=== PATIENT | female | born 1965 | race Caucasian/White ===

== ENCOUNTER → 2017-06-16 | Day surgery (SDC) | payer BC, OTHER ==
[2017-06-09 14:33] VITALS: Ht 175.3 cm; Wt 102.3 kg
[~2017-06-16] VITALS: Ht 175.3 cm; Wt 102.3 kg
[~2017-06-16] MED LIST: DIVA500T59 PO; KPP/1000 PO; LEVO50TA6 PO; LIDOCAINE HCL 2% 2 ML VIAL (20MG/ML) ONE; MIDAZOLAM HCL 1 MG/ML 2ML VIAL ONE; MULTTAB58 PO; ONDANSETRON INJ 2 MG/ML 2 ML VIAL ONE; PROPOFOL IV EMULSION 10 MG/ML 20 ML VIAL IV ONE; PSYL48.59 PO; SODIUM CHLORIDE 0.9% 500ML 500 ML IV ONE
--- NOTE | 2017-06-16 10:00 | Endo History and Physical ---
History & Physical Date of Service: Jun 16, 2017. Chief Complaint: Screening Referring Physician: Sherin Muhammad History of Present Illness screening Past Surgical History Hx Cardiac Surgery: No Hx Internal Defibrillator: No Hx Pacemaker: No Hx Abdominal Surgery: Yes () Hx of Implantable Prosthesis: No Hx Post-Op Nausea and Vomiting: No Hx Cancer Surgery: No Hx Thoracic Surgery: No Hx Orthopedic: Yes (HAND CYST REMOVAL) Hx Urinary Tract Surgery: No Family History None Social History Smoking Status: Former Smoker Hx Substance Use: No Hx Alcohol Use: No Allergies Coded Allergies: Phenytoin (Verified Allergy, Unknown, ELEVATED COUNTS, 06/09/17) Topiramate (Verified Allergy, Unknown, SYNCOPAL EPISODES, 06/09/17) Current Medications Reported Home Medications Medications Dose Route/Sig Max Daily Dose Days Date Category Keppra (Levetiracetam) 1,000 Mg Tab 1,000 Mg PO BID 06/09/17 Reported Depakote (Divalproex Sodium) 500 Mg Tab 1 Tab PO QAM 06/09/17 Reported Depakote (Divalproex Sodium) 500 Mg Tab 2 Tab PO QPM 06/09/17 Reported Metamucil (Psyllium) 48.57 % Pow 1 Dose PO QPM 06/09/17 Reported Multivitamin (Multiple Vitamin) 1 Tab Tab 1 Tab PO QPM 06/09/17 Reported Levothyroxine Sodium 50 Mcg Tab 1 Tab PO QAM 90 06/09/17 Reported Vital Signs Weight (Kilograms): 102.27 Height (Feet): 5 Height (Inches): 9 Date Time Temp Pulse Resp B/P (MAP) Pulse Ox O2 Delivery O2 Flow Rate FiO2 06/16/17 09:46 36.5 50 16 129/64 (85) 95 Room Air Physical Exam General Appearance: WD/WN, no apparent distress Assessment and Plan colonoscopy today
--- NOTE | 2017-06-16 10:49 | Discharge Instructions ---
Endoscopy Patient Instructions Date / Procedure(s) Performed Jun 16, 2017. Colonoscopy Allergy Information Coded Allergies: Phenytoin (Verified Allergy, Unknown, ELEVATED COUNTS, 06/09/17) Topiramate (Verified Allergy, Unknown, SYNCOPAL EPISODES, 06/09/17) Discharge Date / Findings Jun 16, 2017. 2 small polyps Medication Instructions Restart Stopped Medication(s): OK to resume all home medications as above Provider Instructions Activity Restrictions - No exercising or heavy lifting for 24 hours. - Do not drink alcohol the day of the procedure. - Do not drive a car or operate machinery until the day after the procedure. - Do not make any important decisions or sign important papers in 24 hours after the procedure. Following Day: - Return to full activity which may include returning to work/school. Diet Start your diet with liquids and light foods (jello, soup, juice, toast). Then eat your usual diet if not nauseated. Treatment For Common After Affects For mild abdominal pain, bloating, or excessive gas: - Rest - Eat lightly - Lie on right side Follow-Up Information Follow-up with Sherin Muhammad as scheduled Anesthesia Information What You Should Know You have had a procedure that required some medicine to reduce anxiety and discomfort. This treatment is called moderate sedation. After receiving the treatment, you may be sleepy, but you will be able to breathe on your own. The effects of the treatment may last for several hours. Follow these instructions along with Activity/Diet recommendations noted above: * Do NOT do anything where dizziness or clumsiness would be dangerous. * Rest quietly at home today, then you can be up and about tomorrow. * Have a responsible person stay with you the rest of today. * You may have had an I.V. today. If so, you may take the dressing off later today. Recommendations Call your doctor if: * Trouble breathing * Continuous vomiting for more than 24 hours * Temperature above 101 degrees * Severe abdominal pain or bloating * Pain not relieved by pain medicine ordered * There is increased drainage or redness from any incision * A large amount of rectal bleeding greater than 2-3 tablespoons. (If you had a polyp/s removed or have hemorrhoids, a small amount of blood - from the rectum is to be expected.) * You have any unanswered questions or concerns. IN THE EVENT OF A SERIOUS EMERGENCY, GO TO THE NEAREST EMERGENCY ROOM Your discharge instructions were prepared by provider Siomara Suvock. Patient Instructions Signature Page Thuy Lawton Patient (or Guardian) Signature/Date: I have read and understand the instructions given to me by my caregivers. Caregiver/RN/Doctor Signature/Date: The above-named patient and/or guardian has received patient instructions on this date. + Original Patient Signature Page (only) stays with chart. Please make copy for patient.
--- NOTE | 2017-06-16 10:56 | GI REPORT ---
Procedure Date: 06/16/2017 10:18 AM Procedure: Colonoscopy Indications: Screening for colorectal malignant neoplasm Medicines: Propofol per Anesthesia Complications: No immediate complications. Estimated blood loss: Minimal. Estimated Blood Loss: Estimated blood loss was minimal. Procedure: Pre-Anesthesia Assessment: - Prior to the procedure, a History and Physical was performed, and patient medications, allergies and sensitivities were reviewed. The patient's tolerance of previous anesthesia was reviewed. - The risks and benefits of the procedure and the sedation options and risks were discussed with the patient. All questions were answered and informed consent was obtained. - Patient identification and proposed procedure were verified prior to the procedure by the physician and the nurse. The procedure was verified in the pre-procedure area in the procedure room. - Mental Status Examination: alert and oriented. Airway Examination: normal oropharyngeal airway and neck mobility. Respiratory Examination: clear to auscultation. CV Examination: normal. Abdominal Examination: bowel sounds present, abdomen soft and non-tender, no masses or organomegaly noted. - ASA Grade Assessment: III - A patient with severe systemic disease. After I obtained informed consent, the scope was passed under direct vision. Throughout the procedure, the patient's blood pressure, pulse, and oxygen saturations were monitored continuously. The scope was introduced through the anus and advanced to the terminal ileum. The colonoscopy was performed without difficulty. The patient tolerated the procedure well. The quality of the bowel preparation was good. Findings: The perianal and digital rectal examinations were normal. Pertinent negatives include normal sphincter tone and no palpable rectal lesions. The terminal ileum appeared normal. A 5 mm polyp was found at the hepatic flexure. The polyp was sessile. The polyp was removed with a cold snare. Resection and retrieval were complete. Verification of patient identification for the specimen was done by the physician and nurse using the patient's name and date. Estimated blood loss was minimal. A 3 mm polyp was found in the descending colon. The polyp was sessile. The polyp was removed with a cold snare. Resection and retrieval were complete. Verification of patient identification for the specimen was done by the physician and nurse using the patient's name and date. Estimated blood loss was minimal. The retroflexed view of the distal rectum and anal verge was normal and showed no anal or rectal abnormalities. Impression: - The examined portion of the ileum was normal. - One 5 mm polyp at the hepatic flexure, removed with a cold snare. Resected and retrieved. - One 3 mm polyp in the descending colon, removed with a cold snare. Resected and retrieved. - The distal rectum and anal verge are normal on retroflexion view. Recommendation: - Await pathology results. - Repeat colonoscopy in 5 years for surveillance. - Return to referring physician as previously scheduled. - Discharge patient to home. Siomara Pardo D.O. Siomara Pardo, 06/16/2017 10:48:07 AM This report has been signed electronically. Note Initiated On: 06/16/2017 10:18 AM I attest to the content of the Intraoperative Record and orders documented therein, exceptions below
--- NOTE | 2017-06-16 11:00 | Anesthesiology Progress Note ---
Anesthesia Post Op Note Date & Time Jun 16, 2017 at 11:00 Vital Signs Pain Intensity: 0 Vital Signs Past 12 Hours Date Time Temp Pulse Resp B/P (MAP) Pulse Ox O2 Delivery O2 Flow Rate FiO2 06/16/17 10:48 50 16 121/56 (77) 96 Room Air 06/16/17 09:46 36.5 50 16 129/64 (85) 95 Room Air Notes Mental Status: alert / awake / arousable, participated in evaluation Pt Amnestic to Procedure: Yes Nausea / Vomiting: adequately controlled Pain: adequately controlled Airway Patency, RR, SpO2: stable & adequate BP & HR: stable & adequate Hydration State: stable & adequate Anesthetic Complications: no major complications apparent
[2017-06-16 11:22] VITALS: BP 167/67; PULSE 44; O2SAT 96
== END | disposition home or self-care (01) ==
LOC: C.GI 09:14
PROVIDERS: ATTEND Internal Medicine
DX: Z12.11 Encounter for screening for malignant neoplasm of colon (principal); D12.4 Benign neoplasm of descending colon; D12.3 Benign neoplasm of transverse colon; Z87.891 Personal history of nicotine dependence; E03.9 Hypothyroidism, unspecified; D64.9 Anemia, unspecified; M19.90 Unspecified osteoarthritis, unspecified site; Z79.899 Other long term (current) drug therapy

== ENCOUNTER 2017-08-28 11:46 | Emergency (ER) | payer BC, OTHER ==
[~2017-08-28] VITALS: Ht 177.8 cm; Wt 105.1 kg
[~2017-08-28 11:46] MED LIST changes: -LIDOCAINE HCL 2% 2 ML VIAL (20MG/ML) ONE; -MIDAZOLAM HCL 1 MG/ML 2ML VIAL ONE; -ONDANSETRON INJ 2 MG/ML 2 ML VIAL ONE; -PROPOFOL IV EMULSION 10 MG/ML 20 ML VIAL IV ONE; -SODIUM CHLORIDE 0.9% 500ML 500 ML IV ONE
[2017-08-28 12:03] VITALS: TEMP 36.7; Ht 177.8 cm; Wt 105.1 kg
[2017-08-28] MEDS ORDERED: ONDANSETRON INJ 2 MG/ML 2 ML VIAL IV STA (12:11)
[2017-08-28 12:12] VITALS: O2SAT 98
--- NOTE | 2017-08-28 12:21 | EMERGENCY ROOM VISIT NOTE ---
History Report prepared by Ariadna: Ridge Reich Under the Supervision of: Dr. Charly Arellano D.O. First contact with patient: 12:04 Chief Complaint: STROKE SYMPTOMS Stated Complaint: SEIZURE, HEADACHE, VOMITING, POSSIBLE STROKE Nursing Triage Summary: pt had seizure at 0815 this am was found on floor by daughter lasted 1-2 minutes pt unable to move right side .pt did move from w/c to bed with my assist .family states pt unable to move right side since having surgery has always been weak. had avm in 2003. 2 hours after seizure pt started vomiting on herself. unable to assess pt due to family keeps responding and not letting pt Attempt to answer. pt knows name and . c/o headache. pt unable to move right foot in air and hold it same with right arm. History of Present Illness The patient is a 52 year old female who presents to the Emergency Room with complaints of a headache that began 1 hour ago. 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 She also began to have seizures and migraines after her stoke as well. The patient has not had a seizure in several months, however, she did have one earlier this morning, about 4 hours ago. They state that her seizure was completely similar to her regular seizures, lasting only a couple of minutes. She then began to have a sudden onset of a headache that gradually worsened throughout the morning. She became nauseated and experienced multiple episodes of vomiting. She denies any fevers at this time. Source of History: patient Onset: about 1 hour ago Position: head Symptom Intensity: moderate Quality: ache Timing: worsening Associated Symptoms: + nausea, + vomiting, No fevers Review of Systems See HPI for pertinent positives & negatives. A total of 10 systems reviewed and were otherwise negative. Past Medical & Surgical Medical Problems: (1) Brain damage (2) Right sided weakness (3) Stroke Surgical Problems: (1) AVM (arteriovenous malformation) brain Family History Patient reports no known family medical history. Social History Smoking Status: Never Smoker Alcohol Use: none Drug Use: none Marital Status: Occupation Status: disabled Current/Historical Medications Scheduled Divalproex Sodium (Depakote), 1,000 MG PO QPM Divalproex Sodium (Depakote), 500 MG PO QAM Docusate Sodium (Colace), 200 MG PO BID Levetiracetam (Keppra), 2,000 MG PO BID Levothyroxine Sodium (Levothyroxine Sodium), 50 MCG PO QAM Multiple Vitamin (Multivitamin), 1 TAB PO QPM Psyllium (Metamucil), 1 DOSE PO QPM Allergies Coded Allergies: Phenytoin (Verified Allergy, Unknown, ELEVATED COUNTS, 08/28/17) Topiramate (Verified Allergy, Unknown, SYNCOPAL EPISODES, 08/28/17) Physical Exam Vital Signs Date Time Temp Pulse Resp B/P (MAP) Pulse Ox O2 Delivery O2 Flow Rate FiO2 08/28/17 15:31 49 18 141/72 95 08/28/17 14:40 57 16 131/77 94 Room Air 08/28/17 13:32 53 18 149/81 95 Room Air 08/28/17 13:00 53 18 154/90 95 Room Air 08/28/17 12:30 58 18 147/75 93 Room Air 08/28/17 12:12 98 Room Air 08/28/17 12:12 98 Room Air 08/28/17 12:03 36.7 73 18 136/86 96 Room Air 08/28/17 12:01 66 Physical Exam GENERAL: Patient is awake, alert, and in no acute distress. Patient appears to be uncomfortable and anxious. EYES: The conjunctivae are clear. The pupils are round and reactive. EARS, NOSE, MOUTH AND THROAT: The nose is without any evidence of any deformity. Mucous membranes are moist tongue is midline NECK: The neck is nontender and supple. RESPIRATORY: Normal respiratory effort is noted there is no evidence of wheezing rhonchi or rales CARDIOVASCULAR: Regular rate and rhythm noted there no murmurs rubs or gallops normal S1 normal S2 GASTROINTESTINAL: The abdomen is soft. Bowel sounds are present in all quadrants. Abdomen is nontender MUSCULOSKELETAL/EXTREMITIES: There is no evidence of gross deformity full range of motion is noted in the hips and shoulders SKIN: There is no obvious evidence of any rash. There are no petechiae, pallor or cyanosis noted. NEUROLOGIC: Patient is awake and alert. She answers questions softly and intermittently, but appears to answer appropriately. No drift in her upper extremities. [employer] strength is diminished in the RUE compared to the left. Patellar tendon reflexes are 3+ on the right and 2+ on the left. No facial droop. Medical Decision & Procedures ER Provider Diagnostic Interpretation: Radiology results as stated below per my review and radiologist interpretation: CT HEAD WITHOUT CONTRAST (CT) CLINICAL HISTORY: Seizure, headache COMPARISON STUDY: Head CT dated 01/01/2008, MRI the brain dated 08/29/2012 TECHNIQUE: Axial CT of the brain is performed from the vertex to the skull base. IV contrast was not administered for this examination. A dose lowering technique was utilized adhering to the principles of ALARA. CT DOSE: 687.98 mGy.cm FINDINGS: There are postsurgical changes of prior aneurysm clipping. There are dystrophic calcifications present within the parafalcine frontal region. There is bifrontal encephalomalacia, left greater than right. There is stable dilatation of the left lateral ventricle. There is no acute hemorrhage. There are patchy white matter hypodensities likely on a small vessel basis. There is stable dilatation of the left lateral ventricle, a finding which is felt to be secondary to volume loss There is no evidence of acute sinusitis IMPRESSION: No acute intracranial findings Electronically signed by: Osmany Castaneda M.D. 08/28/2017 12:51 PM Dictated Date/Time: 08/28/2017 12:48 PM CHEST ONE VIEW PORTABLE CLINICAL HISTORY: 52 years-old Female presenting with EVALUATE ALTERED MENTAL STATUS/WEAKNESS. TECHNIQUE: Portable upright AP view of the chest was obtained. COMPARISON: 03/10/2011. FINDINGS: Atherosclerosis of the aortic arch. Cardiac silhouette normal in size. Lungs and pleural spaces clear. Osseous structures normal. Upper abdomen normal. IMPRESSION: 1. No acute cardiopulmonary disease. Electronically signed by: Orestes Velásquez M.D. 08/28/2017 12:46 PM Dictated Date/Time: 08/28/2017 12:46 PM Laboratory Results 08/28/17 12:28 Red Blood Count 5.12, Mean Corpuscular Volume 88.9, Mean Corpuscular Hemoglobin 30.5, Mean Corpuscular Hemoglobin Concent 34.3, Mean Platelet Volume 9.8, Neutrophils (%) (Auto) 73.0, Lymphocytes (%) (Auto) 20.5, Monocytes (%) (Auto) 4.6, Eosinophils (%) (Auto) 1.1, Basophils (%) (Auto) 0.4, Neutrophils # (Auto) 7.10, Lymphocytes # (Auto) 1.99, Monocytes # (Auto) 0.45, Eosinophils # (Auto) 0.11, Basophils # (Auto) 0.04 08/28/17 12:28 Test 08/28/17 12:28 08/28/17 12:29 08/28/17 13:25 White Blood Count 9.73 K/uL (4.8-10.8) Red Blood Count 5.12 M/uL (4.2-5.4) Hemoglobin 15.6 g/dL (12.0-16.0) Hematocrit 45.5 % (37-47) Mean Corpuscular Volume 88.9 fL (80-100) Mean Corpuscular Hemoglobin 30.5 pg (25-34) Mean Corpuscular Hemoglobin Concent 34.3 g/dl (32-36) Platelet Count 140 K/uL (130-400) Mean Platelet Volume 9.8 fL (7.4-10.4) Neutrophils (%) (Auto) 73.0 % Lymphocytes (%) (Auto) 20.5 % Monocytes (%) (Auto) 4.6 % Eosinophils (%) (Auto) 1.1 % Basophils (%) (Auto) 0.4 % Neutrophils # (Auto) 7.10 K/uL (1.4-6.5) Lymphocytes # (Auto) 1.99 K/uL (1.2-3.4) Monocytes # (Auto) 0.45 K/uL (0.11-0.59) Eosinophils # (Auto) 0.11 K/uL (0-0.5) Basophils # (Auto) 0.04 K/uL (0-0.2) RDW Standard Deviation 45.8 fL (36.4-46.3) RDW Coefficient of Variation 14.0 % (11.5-14.5) Immature Granulocyte % (Auto) 0.4 % Immature Granulocyte # (Auto) 0.04 K/uL (0.00-0.02) Prothrombin Time 10.3 SECONDS (9.0-12.0) Prothromb Time International Ratio 1.0 (0.9-1.1) Activated Partial Thromboplast Time 25.0 SECONDS (21.0-31.0) Partial Thromboplastin Ratio 1.0 Anion Gap 6.0 mmol/L (3-11) Est Creatinine Clear Calc Drug Dose 116.5 ml/min Estimated GFR () 107.0 Estimated GFR (Non- 92.3 BUN/Creatinine Ratio 21.2 (10-20) Calcium Level 9.2 mg/dl (8.5-10.1) Magnesium Level 2.0 mg/dl (1.8-2.4) Total Bilirubin 0.3 mg/dl (0.2-1) Direct Bilirubin < 0.1 mg/dl (0-0.2) Aspartate Amino Transf (AST/SGOT) 22 U/L (15-37) Alanine Aminotransferase (ALT/SGPT) 46 U/L (12-78) Alkaline Phosphatase 67 U/L (45-117) Troponin I 0.116 ng/ml (0-0.045) Total Protein 7.8 gm/dl (6.4-8.2) Albumin 4.2 gm/dl (3.4-5.0) Thyroid Stimulating Hormone (TSH) 1.740 uIu/ml (0.300-4.500) Prolactin 8.36 ng/mL Valproic Acid (Depakene) Level 99 mcg/ml (50-100) Bedside Glucose 114 mg/dl (70-90) Urine Color YELLOW Urine Appearance CLEAR (CLEAR) Urine pH 8.0 (4.5-7.5) Urine Specific Barnard 1.014 (1.000-1.030) Urine Protein NEG (NEG) Urine Glucose (UA) NEG (NEG) Urine Ketones NEG (NEG) Urine Occult Blood NEG (NEG) Urine Nitrite NEG (NEG) Urine Bilirubin NEG (NEG) Urine Urobilinogen NEG (NEG) Urine Leukocyte Esterase LARGE (NEG) Urine WBC (Auto) 10-30 /hpf (0-5) Urine RBC (Auto) 0-4 /hpf (0-4) Urine Hyaline Casts (Auto) 1-5 /lpf (0-5) Urine Epithelial Cells (Auto) >30 /lpf (0-5) Urine Bacteria (Auto) NEG (NEG) Laboratory results per my review. Medications Administered Medications (Trade) Dose Ordered Sig/Yonny Route Start Time Stop Time Status Last Admin Dose Admin Ondansetron HCl (Zofran Inj) 4 mg NOW STAT IV 08/28/17 12:11 08/28/17 12:12 DC 08/28/17 12:31 4 MG ECG Per My Interpretation Indication: weakness Rate (beats per minute): 55 Rhythm: sinus bradycardia Findings: nonspecific-ST abn (inferior and lateral), PVC Comparison ECG Date: 07/09/2007 Change: no significant change (decreased rate, otherwise no significant change) ED Course 1204: The patient was evaluated in room B1. A complete history and physical examination were performed. 1211: Ordered Zofran Inj 4 mg IV 1509: The patient does not want to stay for further evaluation as an inpatient and would like to go home. 1520: Upon reevaluation, the patient is resting. I discussed the results and treatment plan with her. She verbalized agreement of the treatment plan. She was discharged home. Medical Decision Differential diagnosis: Etiologies such as migraine headache, meningitis, sinusitis, CO exposure, ICH, SAH, infection, tumor, headache, sinus thrombosis, arterial dissection, as well as others were entertained. Nursing notes reviewed. Additional history is obtained from the patient's family members. The patient is a 52-year-old female who has had a history of AVM repair in her brain. She has a history of seizures but has not had a seizure in over a year. She had a seizure which occurred today which was followed by unilateral weakness. The patient has had similar symptoms in the past but this appears to be lasting longer according to family members. She also had an episode of emesis as well as headache. I discussed patient's laboratory and radiographic studies with her and her family members. She was reevaluated multiple times. On final reevaluation she was awake and alert and had no specific complaints. The patient was found to have nonspecific EKG changes as well as a mildly elevated troponin. I offered to have the patient evaluated by the hospitalist for possible inpatient management but the patient feels at her baseline. At this time she denies any dyspnea on exertion or chest pain. I am unsure of the cause of this finding but the patient has assured me that she will follow up with her primary care physician for further evaluation. She was also encouraged to continue all her medications as before and return to the emergency department immediately if symptoms change worsening of the need arises. Head Trauma GCS Score: 15 Medication Reconcilliation Current Medication List: was personally reviewed by me Blood Pressure Screening Patient's blood pressure: Elevated blood pressure Blood pressure disposition: Elevated BP felt to be situational Impression Primary Impression: Elevated troponin Additional Impressions: Seizure Headache Nausea & vomiting Scribe Attestation The scribe's documentation has been prepared under my direction and personally reviewed by me in its entirety. I confirm that the note above accurately reflects all work, treatment, procedures, and medical decision making performed by me. Departure Information Dispostion Home / Self-Care Referrals Sherin Muhammad M.D. (PCP) Forms HOME CARE DOCUMENTATION FORM, IMPORTANT VISIT INFORMATION Patient Instructions ED Seizure Recurrent, My [facility] Additional Instructions Continue all medications as prescribed. Rest and avoid any strenuous activity. All up with her family doctor this week. Return to the emergency department immediately if symptoms change worsening of the need arises. Continue taking Tylenol as directed for pain. I would recommend repeat laboratory studies to recheck the abnormal labs were found today in the emergency department. Problem Qualifiers Additional Impressions: Headache Headache type: unspecified Headache chronicity pattern: acute headache Intractability: not intractable Qualified Codes: R51 - Headache Nausea & vomiting Vomiting type: unspecified Vomiting Intractability: non-intractable Qualified Codes: R11.2 - Nausea with vomiting, unspecified
[2017-08-28 12:43] LABS: BASO % 0.4 %; BASO ABS # 0.04 K/uL (0-0.2); EOS % 1.1 %; EOS ABS # 0.11 K/uL (0-0.5); HEMATOCRIT 45.5 % (37-47); HEMOGLOBIN 15.6 g/dL (12.0-16.0); IG# 0.04 K/uL (0.00-0.02); LYMPH % 20.5 %; LYMPH ABS # 1.99 K/uL (1.2-3.4); MEAN CELL VOLUME 88.9 fL (80-100); MEAN CORPUSCULAR HEMOGLOBIN 30.5 pg (25-34); MEAN CORPUSCULAR HGB CONC 34.3 g/dl (32-36); MEAN PLATELET VOLUME 9.8 fL (7.4-10.4); MONO % 4.6 %; MONO ABS # 0.45 K/uL (0.11-0.59); PLATELET COUNT 140 K/uL (130-400); RED CELL DISTRIBUTION WIDTH SD 45.8 fL (36.4-46.3); WHITE BLOOD COUNT 9.73 K/uL (4.8-10.8)
[2017-08-28] MEDS ORDERED: DOCU-94 PO (12:43)
--- NOTE | 2017-08-28 12:48 | DIAGNOSTIC IMAGING REPORT ---
CHEST ONE VIEW PORTABLE CLINICAL HISTORY: 52 years-old Female presenting with EVALUATE ALTERED MENTAL STATUS/WEAKNESS. TECHNIQUE: Portable upright AP view of the chest was obtained. COMPARISON: 03/10/2011. FINDINGS: Atherosclerosis of the aortic arch. Cardiac silhouette normal in size. Lungs and pleural spaces clear. Osseous structures normal. Upper abdomen normal. IMPRESSION: 1. No acute cardiopulmonary disease. Electronically signed by: Orestes Velásquez M.D. 08/28/2017 12:46 PM Dictated Date/Time: 08/28/2017 12:46 PM
--- NOTE | 2017-08-28 12:52 | DIAGNOSTIC IMAGING REPORT ---
CT HEAD WITHOUT CONTRAST (CT) CLINICAL HISTORY: Seizure, headache COMPARISON STUDY: Head CT dated 01/01/2008, MRI the brain dated 08/29/2012 TECHNIQUE: Axial CT of the brain is performed from the vertex to the skull base. IV contrast was not administered for this examination. A dose lowering technique was utilized adhering to the principles of ALARA. CT DOSE: 687.98 mGy.cm FINDINGS: There are postsurgical changes of prior aneurysm clipping. There are dystrophic calcifications present within the parafalcine frontal region. There is bifrontal encephalomalacia, left greater than right. There is stable dilatation of the left lateral ventricle. There is no acute hemorrhage. There are patchy white matter hypodensities likely on a small vessel basis. There is stable dilatation of the left lateral ventricle, a finding which is felt to be secondary to volume loss There is no evidence of acute sinusitis IMPRESSION: No acute intracranial findings Electronically signed by: Osmany Castaneda M.D. 08/28/2017 12:51 PM Dictated Date/Time: 08/28/2017 12:48 PM
[2017-08-28 13:00] LABS: ALBUMIN 4.2 gm/dl (3.4-5.0); ALT/SGPT 46 U/L (12-78); BLOOD UREA NITROGEN 16 mg/dl (7-18); CALCIUM 9.2 mg/dl (8.5-10.1); CARBON DIOXIDE 30 mmol/L (21-32); CREATININE 0.75 mg/dl (0.60-1.20); GLUCOSE 106 mg/dl (70-99); POTASSIUM 3.7 mmol/L (3.5-5.1); SODIUM 140 mmol/L (136-145)
[2017-08-28 13:26] LABS: ALKALINE PHOSPHATASE 67 U/L (45-117); AST/SGOT 22 U/L (15-37); TOTAL PROTEIN 7.8 gm/dl (6.4-8.2)
[2017-08-28 15:31] VITALS: BP 141/72; PULSE 49; O2SAT 95
== END 2017-08-28 15:32 | disposition home or self-care (01) ==
LOC: C.EDB 11:48
DX: R56.9 Unspecified convulsions (principal); R51 Headache; R11.2 Nausea with vomiting, unspecified

== ENCOUNTER 2025-04-12 16:10 | Observation (INO) ==
--- NOTE | 2025-04-12 16:20 | Emergency Department Note ---
Impression & Plan Chest pain, Chronic hyponatremia, Aphasia ED Provider Note NAME: JAK BARKER AGE: 59 SEX: F : 1965 ARRIVES VIA: Ambulance INFORMANT: Patient, EMS ED PROVIDER(S): Jose Stoner DO CHIEF COMPLAINT: chest pain HPI: This is a 59-year-old female with the PMHx of CVA c/b residual deficits and aphasia, epilepsy, hypothyroidism and HTN presenting to [facility] for further evaluation of chest pain. Patient is accompanied by EMS who provide additional history. Patient currently resides in [facility] for stroke rehabilitation services with significant aphasia. Patient developed chest pain today. Describes it as central. Sharp and stabbing. She is short of breath. EMS reports that she was given Maalox as well as sublingual nitroglycerin prior to arrival. They reported normal EKG. They deny fever or chills. No cough or congestion. They deny abdominal pain, nausea and vomiting. No urinary complaints. No recent changes in bowel movements. She does have right lower extremity swelling that she reports is worse than usual. Some pain in this area. Patient denies recent changes in medications or OTC supplements. Patient offers no other complaints, today. ADDITIONAL HISTORY OBTAINED: Per HPI Chronic Medical/Social Conditions Affecting Care: Per HPI PAST MEDICAL HISTORY: See Below PAST SURGICAL HISTORY: See Below FAMILY HISTORY: See Below SOCIAL HISTORY: See Below HOME MEDICATIONS: See Below ALLERGIES: See Below VITALS: See Below PHYSICAL EXAMINATION: GENERAL: Sitting up in bed, alert, well appearing, well nourished, no distress, non-toxic EYE EXAM: normal conjunctiva. OROPHARYNX: no exudate, no erythema, lips, buccal mucosa, and tongue normal and mucous membranes are moist NECK: supple, no nuchal rigidity, no adenopathy, non-tender LUNGS: Clear to auscultation. Normal chest wall mechanics HEART: no murmurs, regular rate, regular rhythm ABDOMEN: abdomen soft, non-tender, no masses, no rebound or guarding. BACK: Back is symmetrical on inspection and there is no deformity, no midline tenderness, no CVA tenderness. SKIN: no rashes and no bruising UPPER EXTREMITIES: upper extremities are grossly normal. LOWER EXTREMITIES: Right lower extremity is swollen as compared to the left. NEURO EXAM: Normal sensorium, GCS 15, significant aphasia, no gross weakness of arms, no gross weakness of legs. MEDICAL DECISION MAKING: Differential diagnoses includes but not limited to ACS, stable vs unstable angina, dysrhythmia, viral URI, pneumonia, pericarditis, pneumothorax, costochondritis, MSK strain, PE, hypertensive emergency, psychological causes, esophageal reflux, gastritis In summary, this is a 59 year old female who presented with chest pain. Differential as above. Nursing notes and pertinent past medical records reviewed. Vital signs reviewed and the patient is bradycardic and mildly hypertensive but otherwise afebrile and HDS. History and presentation revealed complicated history of CVA with aphasia that makes history and exam difficult. Physical examination revealed warm and well-perfused extremities with 2+ distal pulses. Right lower extremity is concerning for possible findings of DVT. As a result of my initial evaluation, history and review of systems with the patient is difficult secondary to her aphasia and prior CVA. Patient able to communicate central chest pain with mild shortness of breath. Does have findings consistent with possible DVT of the right lower extremity. Given chest pain shortness of breath, will proceed with CT PE study while loading with aspirin. Will provide pain control with sublingual nitroglycerin as well as IV fentanyl. Patient did receive Maalox prior to arrival. She does have multiple risk factors for ACS. Diagnostics interpreted by me include EKG and cardiac monitoring as listed below: -Cardiac Monitoring: An order was placed for continuous cardiac monitoring. The monitor shows a rate of 50s with regular rhythm. -ECG: Sinus bradycardia at a rate of [address] segment changes to suggest STEMI. There are anterolateral ST segment depression/T wave inversions. These appear chronic as compared to prior EKGs. Patient is normally bradycardic. Patient completed laboratory studies and imaging. Chest x-ray independently interpreted by me reveals some interstitial edema but no large pleural effusions. No pneumothorax. No focal consolidation. Results independently interpreted by me are acute on chronic hyponatremia present. Minimal hyperglycemia. Electrolytes and kidney function are otherwise normal. Normal LFTs and lipase. Troponin unremarkable. No significant leukocytosis or anemia. The patient was managed with IV fentanyl for pain control. She was given a loading dose of aspirin. Sublingual nitroglycerin was continued in the emergency department for further pain control. Subsequent reevaluations with the patient, she is reporting improvement in her chest pain from sublingual nitroglycerin. Relatively reassuring labs as well as EKG at this time. Patient's chest pain improved with sublingual nitro concern and she does have risk factors for coronary artery disease. Given difficult to have history with the patient as well as physical examination, I do believe hospital admission would be beneficial. Do feel that she could be closely monitored on telemetry with serial EKGs and troponins. Patient's symptoms could be related to the gastrointestinal symptom including esophagitis, GERD, gastritis or esophageal spasm as well. Still feel it is necessary for further workup as an inpatient. CT PE study was independently interpreted by me as negative for large saddle pulmonary embolism. Ultimately, the decision was made to admit the patient for high risk chest pain. I discussed the case with the hospitalist service via telephone/Tiger[employer] and they are agreeable to admit the patient to their services by Dr. Acevedo. Based on the above, including the patient's age, coexisting illnesses, labs, imaging, and exam findings the decision to treat as an inpatient. I discussed the patient with the hospitalist team who recommended admission to their services. They received the medications, treatments, interventions indicated above and their condition remained guarded. I discussed my findings with the patient and their family and they understand and agree with the treatment plan. All patient / family questions were answered to their satisfaction. Consults/Care Managements Discussions: Per MDM ER treatment provided: See above Procedures: none Critical Care: None The chart was completed utilizing [employer] voice recognition software. Grammatical errors, random word insertions, pronoun errors, and incomplete sentences are an occasional consequence of this system due to software limitations, ambient noise, and hardware issues. Any formal questions or concerns about the content, text, or information contained within the body of this dictation should be directly addressed to the physician for clarification. 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 Diverticulitis dx 6 mon ago History of cardiac murmur unsure Thyroid disease History of iron deficiency unsure History of recent hospitalization 3 weeks ago /[facility] - stomach infection - reason for upcoming colonoscopy. UTI dx during hospital stay/tx for. 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) Right sided weakness Surgical History History of D&C History of colonoscopy H/O craniotomy AVM Repair x multiple Family History Grandmother (Paternal) Family history of diabetes mellitus Social History Smoking Status: Unknown if ever smoked Tobacco Type: Cigarettes Second Hand Exposure: No; Do You Dip or Chew Tobacco: No; Hx Alcohol Use: No Hx Substance Use: No Preferred Language: Syriac Communication Ability: Impaired Communication Ability Comment: patient points and gestures 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: No Beliefs That Will Affect Care: Synagogue Synagogue Beliefs: Pentecostalism Current Living Situation: Spouse Current Living Situation Comment: home with spouse current occupational status: disabled Feels Safe at Home: Yes Sunscreen Use: Yes Assistive Devices: None Allergies Allergies Allergy/AdvReac Type Severity Reaction Status Date / Time lisinopril Allergy Unknown Verified 04/12/25 17:30 phenytoin AdvReac Severe ELEVATED Verified 04/12/25 17:30 LIVER COUNTS topiramate AdvReac Severe SYNCOPAL Verified 04/12/25 17:30 EPISODES, lowered heart rate Home Meds Home Medications Medication Instructions Recorded Confirmed acetaminophen 325 mg tablet 650 mg PO Q6 PRN Pain 1-10 04/12/25 04/12/25 (Tylenol) acetaminophen 325 mg tablet 650 mg PO Q6 PRN temp >100 04/12/25 04/12/25 (Tylenol) calcium carbonate (Tums) 400 mg PO .EVERY 2 HOURS PRN 04/12/25 04/12/25 Indigestion lorazepam 2 mg/mL injection 2 mg IM Q6 PRN Seizure Activity 04/12/25 04/12/25 solution polyethylene glycol 3350 17 gram 17 g PO QAM 04/12/25 04/12/25 oral powder packet (Miralax) spironolactone 25 mg tablet 50 mg PO QAM 04/12/25 04/12/25 Previous Rx's Medication Instructions Recorded divalproex 500 mg tablet,delayed 500 mg PO .COMPLEX #90 tabs 12/14/24 release levetiracetam 1,000 mg tablet 2,000 mg (2 x 1,000 mg) PO BID 12/14/24 #120 tabs levothyroxine 50 mcg tablet 50 mcg PO QAM #30 tabs 12/14/24 metformin 500 mg tablet,extended 500 mg PO QAM #30 tabs 12/14/24 release 24 hr multivitamin 1 tab PO HS #30 tabs 12/14/24 psyllium husk 3.4 gram oral powder 1 packet PO HS #30 ea 12/14/24 packet (Metamucil Fiber (aspartame)) Results & Data (ED) Vital Signs Vital Signs - 24 hr 04/12/25 16:20 04/12/25 16:20 04/12/25 16:32 Temperature 36.8 C Temperature Source Oral Pulse Rate 51 L 52 L Pulse Rate [Apical] 55 L Pulse Rate from SpO2 Sensor Pulse Rhythm Regular Respiratory Rate 19 19 Respiratory Effort / Characteristics Non-Labored Spontaneous Respiratory Depth Normal Blood Pressure 156/75 H Blood Pressure [Left Arm] 162/76 H Blood Pressure Mean 102 Blood Pressure Mean [Left Arm] 104 Pulse Oximetry 94 94 95 Oxygen Delivery Method Room Air Room Air Nasal Cannula Oxygen Flow Rate 2 Sepsis Recent Fever Within 48 Hours No Sepsis New/Unexplained Change in Mental Status N/A Sepsis Action Taken by Nursing No Action Required 04/12/25 16:58 04/12/25 17:00 04/12/25 17:00 Temperature Temperature Source Pulse Rate 51 L 48 L Pulse Rate [Apical] Pulse Rate from SpO2 Sensor 49 L Pulse Rhythm Respiratory Rate 17 Respiratory Effort / Characteristics Respiratory Depth Blood Pressure 183/73 H Blood Pressure [Left Arm] Blood Pressure Mean 102 Blood Pressure Mean [Left Arm] Pulse Oximetry 94 Oxygen Delivery Method Nasal Cannula Oxygen Flow Rate 2 Sepsis Recent Fever Within 48 Hours Sepsis New/Unexplained Change in Mental Status Sepsis Action Taken by Nursing 04/12/25 17:30 04/12/25 17:48 04/12/25 18:02 Temperature Temperature Source Pulse Rate 49 L 54 L Pulse Rate [Apical] Pulse Rate from SpO2 Sensor 53 L Pulse Rhythm Respiratory Rate 21 20 Respiratory Effort / Characteristics Respiratory Depth Blood Pressure 171/70 H Blood Pressure [Left Arm] Blood Pressure Mean 77 Blood Pressure Mean [Left Arm] Pulse Oximetry 99 Oxygen Delivery Method Nasal Cannula Oxygen Flow Rate 2 Sepsis Recent Fever Within 48 Hours Sepsis New/Unexplained Change in Mental Status Sepsis Action Taken by Nursing 04/12/25 18:33 Temperature Temperature Source Pulse Rate Pulse Rate [Apical] 52 L Pulse Rate from SpO2 Sensor Pulse Rhythm Respiratory Rate 14 Respiratory Effort / Characteristics Respiratory Depth Blood Pressure Blood Pressure [Left Arm] 152/75 H Blood Pressure Mean Blood Pressure Mean [Left Arm] 100 Pulse Oximetry Oxygen Delivery Method Room Air Oxygen Flow Rate Sepsis Recent Fever Within 48 Hours Sepsis New/Unexplained Change in Mental Status Sepsis Action Taken by Nursing Laboratory Data 04/12/25 16:04 04/12/25 16:04 Lab Results 04/12/25 04/12/25 Range/Units 16:04 18:40 WBC 9.20 (4.8-10.8) K/ul RBC 4.66 (4.20-5.40) M/uL Hgb 13.5 (12.0-16.0) g/dl Hct 40.0 (37.0-47.0) % MCV 85.8 (80.0-100.0) fL MCH 29.0 (25.0-34.0) pg MCHC 33.8 (32.0-36.0) g/dL RDW Std Deviation 40.7 (36.4-46.3) fL RDW Coeff of Sarah 13.2 (11.5-14.5) % Plt Count 166 (130-400) K/uL MPV 8.9 L (9.4-12.4) fL Immature Gran % (Auto) 0.8 % Neut % (Auto) 61.9 % Lymph % (Auto) 27.5 % Tillman % (Auto) 7.9 % Eos % (Auto) 1.1 % Baso % (Auto) 0.8 % Neut # (Auto) 5.70 (1.40-6.50) K/uL Lymph # (Auto) 2.53 (1.20-3.40) K/uL Tillman # (Auto) 0.73 H (0.11-0.59) K/uL Eos # (Auto) 0.10 (0.00-0.50) K/uL Baso # (Auto) 0.07 (0.00-0.20) K/uL Immature Gran # (Auto) 0.07 (0.01-0.20) K/uL ESR 10 (0-30) mm/hr Sodium 130 L (136-145) mmol/L Potassium 3.9 (3.5-5.1) mmol/L Chloride 92 L (98-107) mmol/L Carbon Dioxide 32 (21-32) mmol/L Anion Gap 6 (3-11) BUN 12 (6-23) mg/dl Creatinine 0.67 (0.6-1.2) mg/dl Est Cr Clr Drug Dosing 117.3 ml/min eGFR 101.25 BUN/Creatinine Ratio 17.9 (10-20) Glucose 119 H (70-99(Fasting)) mg/dl Estimat Average Glucose 146 mg/dl Hemoglobin A1c 6.7 H (4.5-5.6) % Calcium 9.8 (8.6-10.3) mg/dl Total Bilirubin 0.3 (0.2-1.0) mg/dl AST 13 (13-39) U/L ALT 12 (7-52) U/L Alkaline Phosphatase 48 (34-104) U/L Troponin I High Sens 5.6 6.4 (0-14) pg/ml C-Reactive Protein 1.11 H (0-0.5) mg/dl Total Protein 7.1 (6.0-8.3) gm/dl Albumin 4.2 (3.4-5.0) gm/dl Globulin 2.9 (2.5-4.0) gm/dl Albumin/Globulin Ratio 1.4 (0.9-2) Triglycerides 97 (0-150) mg/dl Cholesterol 175 (0-200) mg/dl LDL Cholesterol, Calc 96 mg/dl VLDL Cholesterol, Calc 19 (0-30) mg/dl HDL Cholesterol 60 mg/dl Cholesterol/HDL Ratio 2.9 (0-5) Lipase 25 (11-82) U/L TSH 1.837 (0.300-4.500) uIu/ml Administered Medications Acetaminophen (Acetaminophen 325 Mg Tab) 650 mg PO Q4H PRN PRN Reason: pain/fever Stop: 05/13/25 00:30 Last Admin: 04/13/25 01:01 Dose: 650 mg Documented By: sukumar Diclofenac Sodium (Diclofenac Sod 1% Gel 100 Gm Tube) 2 gm EXT Q12 [facility]; Protocol Stop: 05/12/25 20:59 Last Admin: 04/12/25 21:28 Dose: 2 gm Documented By: MARY Divalproex Sodium (Divalproex Delay Release 500 Mg Tab) 1,000 mg PO DAILY@1999 [facility] Stop: 05/13/25 00:30 Last Admin: 04/13/25 01:03 Dose: 1,000 mg Documented By: sukumar Ketorolac Tromethamine (Ketorolac Tromethamine 15 Mg/Ml Vial) 15 mg IV Q12 [facility] Stop: 04/17/25 20:59 Last Admin: 04/12/25 21:28 Dose: 15 mg Documented By: MARY Levetiracetam (Levetiracetam 500 Mg Tab) 2,000 mg PO BID@ [facility] Stop: 05/13/25 00:30 Last Admin: 04/13/25 01:03 Dose: 2,000 mg Documented By: sukumar Discontinued Medications Aspirin (Aspirin Chew 324 Mg) 324 mg PO NOW STA Stop: 04/12/25 16:18 Last Admin: 04/12/25 16:29 Dose: 324 mg Documented By: SLICK Fentanyl Citrate (Fentanyl Citrate Pf 100 Mcg/2 Ml Vial) 50 mcg IV NOW STA Stop: 04/12/25 16:18 Last Admin: 04/12/25 16:29 Dose: 50 mcg Documented By: SLICK Lorazepam 1 mg/ Syringe 1 mls @ 2 mls/min IV NOW STA Stop: 04/12/25 23:09 Last Admin: 04/12/25 23:08 Dose: 2 mls/min Documented By: MARY Ioversol (Optiray 320 125ml) 119 ml IV ONCE ONE Stop: 04/12/25 17:43 Last Admin: 04/12/25 17:43 Dose: 119 ml Documented By: SABINA Nitroglycerin (Nitroglycerin Sl 0.4 Mg/Tab Tab) 0.4 mg SL Q5M PRN PRN Reason: Chest Pain Stop: 05/12/25 16:16 Last Admin: 04/12/25 16:40 Dose: 0.4 mg Documented By: Admin: 04/12/25 16:29 Dose: 0.4 mg Documented By: ASW Imaging Data Radiologist's Impression: Chest CTA 04/12/25 16:17 CT pulmonary angiogram with IV contrast History: Chest pain COMPARISON: None TECHNIQUE: CT angiography of the chest was performed without IV contrast followed by IV contrast, including 3D post processing CTA image reconstruction. Dose reduction techniques were achieved by using automatic exposure control and/or adjustment of mA and/or kV according to patient size and/or use of iterative reconstruction technique. FINDINGS: Diagnostic quality: Adequate There is no evidence for pulmonary embolism. The heart is not enlarged. There is no pericardial effusion. There are no abnormally enlarged hilar or mediastinal lymph nodes. The central tracheobronchial tree is clear. The lungs are clear. There is no pleural effusion. Limited visualized upper abdomen. No destructive osseous changes are seen. IMPRESSION: No evidence for pulmonary embolism. Electronically signed by Lucas Beard 04-12-2025 5:53 PM Chest X-Ray 04/12/25 16:17 EXAM: Portable AP chest radiograph TECHNIQUE: AP portable radiograph of the chest was obtained. INDICATION: Chest pain Comparison: Chest radiograph August 28, 2017. FINDINGS: LINES and TUBES: None CARDIOVASCULAR: Cardiac silhouette is stably and mildly enlarged in size. Atherosclerosis of the thoracic aorta LUNGS/PLEURA: No focal consolidation identified. Mild pulmonary vascular congestion and chronic interstitial lung changes are similar to prior. No significant pleural fluid. No discernible pneumothorax. OSSEOUS/OTHER: No displaced acute osseous process identified. IMPRESSION: Mild congestive changes of the cardiovascular system that appear similar to the previous radiograph from 2018. Electronically signed by Donald Lopez 04-12-2025 5:16 PM Discharge Plan Visit Data Chief Complaint: Cardiac Assessment Stated Complaint: chest pain/SOB ED Provider: Jose Stoner Discharge Problem: Chest pain, Chronic hyponatremia, Aphasia Patient Disposition: Admitted As Inpatient Condition: Fair Discharge Instructions Interventions: ED Discharge Assessment Last Done: 04/12/25 23:20
[2025-04-12] MEDS: ASPIRIN CHEW 324 MG PO STA (16:29)
[2025-04-12] MEDS: NITROGLYCERIN SL 0.4 MG/TAB TAB SL PRN (16:29)
[2025-04-12 16:40] LABS: Hematocrit (blood only) 40.0 % (37.0-47.0); Hemoglobin 13.5 g/dl (12.0-16.0); Immature Granulocytes # (auto) 0.07 K/uL (0.01-0.20); Immature Granulocytes % (auto) 0.8 %; Mean Corpuscular Hemoglobin 29.0 pg (25.0-34.0); Mean Corpuscular Volume 85.8 fL (80.0-100.0); Platelet Count 166 K/uL (130-400); RDW Standard Deviation 40.7 fL (36.4-46.3); Red Blood Count 4.66 M/uL (4.20-5.40); White Blood Count 9.20 K/ul (4.8-10.8)
[2025-04-12 16:58] LABS: Alanine Aminotransferase 12.0 U/L (7-52); Albumin Globulin Ratio 1.4 (0.9-2); Albumin Level 4.2 gm/dl (3.4-5.0); Alkaline Phosphatase 48.0 U/L (34-104); Anion Gap 6.0 (3-11); Bilirubin,Total 0.3 mg/dl (0.2-1.0); Blood Urea Nitrogen 12.0 mg/dl (6-23); Calcium 9.8 mg/dl (8.6-10.3); Carbon Dioxide 32.0 mmol/L (21-32); Chloride 92.0 mmol/L (98-107); Creatinine Clr Calc Pharmacy 117.3 ml/min; Globulin 2.9 gm/dl (2.5-4.0); Glucose 119.0 mg/dl (70-99(Fasting)); Lipase 25.0 U/L (11-82); Potassium 3.9 mmol/L (3.5-5.1); Sodium 130.0 mmol/L (136-145); Total Protein 7.1 gm/dl (6.0-8.3)
--- NOTE | 2025-04-12 17:17 | XRay Report ---
EXAM: Portable AP chest radiograph TECHNIQUE: AP portable radiograph of the chest was obtained. INDICATION: Chest pain Comparison: Chest radiograph August 28, 2017. FINDINGS: LINES and TUBES: None CARDIOVASCULAR: Cardiac silhouette is stably and mildly enlarged in size. Atherosclerosis of the thoracic aorta LUNGS/PLEURA: No focal consolidation identified. Mild pulmonary vascular congestion and chronic interstitial lung changes are similar to prior. No significant pleural fluid. No discernible pneumothorax. OSSEOUS/OTHER: No displaced acute osseous process identified. IMPRESSION: Mild congestive changes of the cardiovascular system that appear similar to the previous radiograph from 2018. Electronically signed by Donald Lopez 04-12-2025 5:16 PM
[2025-04-12] MEDS: OPTIRAY 320 125ml IV ONE (17:43)
--- NOTE | 2025-04-12 17:53 | CT Scan Report ---
CT pulmonary angiogram with IV contrast History: Chest pain COMPARISON: None TECHNIQUE: CT angiography of the chest was performed without IV contrast followed by IV contrast, including 3D post processing CTA image reconstruction. Dose reduction techniques were achieved by using automatic exposure control and/or adjustment of mA and/or kV according to patient size and/or use of iterative reconstruction technique. FINDINGS: Diagnostic quality: Adequate There is no evidence for pulmonary embolism. The heart is not enlarged. There is no pericardial effusion. There are no abnormally enlarged hilar or mediastinal lymph nodes. The central tracheobronchial tree is clear. The lungs are clear. There is no pleural effusion. Limited visualized upper abdomen. No destructive osseous changes are seen. IMPRESSION: No evidence for pulmonary embolism. Electronically signed by Lucas Beard 04-12-2025 5:53 PM
[2025-04-12 19:25] LABS: Cholesterol 175.0 mg/dl (0-200); HDL Cholesterol 60.0 mg/dl; Triglycerides 97.0 mg/dl (0-150)
[2025-04-12 19:42] LABS: Thyroid Stimulating Hormone 1.837 uIu/ml (0.300-4.500)
[2025-04-12 20:27] LABS: Hemoglobin A1C 6.7 % (4.5-5.6)
--- NOTE | 2025-04-12 20:36 | History & Physical Report ---
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 #Reproducible Chest Pain #R/o Costochondritis -likely noncardiac in nature -negative troponins, ECG reassuring -reproducible to palpation, very tender -consideration to costochondritis, pericarditis, esophageal spasm, less likely G ERD, ACS Plan: -check ESR/CRP -start voltaren cream -start toradol 15mg IV bid -start protonix 40 PO daily -check echo -check lipids, A1c, TSH -hold off on cardiology consult given reproducibility #Hx of Severe CVA #Epilepsy -redisual right sided hemiparesis, expressive aphasia Plan: -continue keppra, depakote -ativan prn for seizures -continue miralax for bowel regiment -will need to check with case management about bed hold at [facility] #Hypothyroidism -continue home levothyroxine I spent a total of 80 minutes in direct patient care, including [id number] time with the patient and/or family, reviewing medical records, ordering and reviewing diagnostic tests, and coordinating care with other healthcare providers. This time includes: history taking, physical examination, medical decision making, counseling, ECG interpretation, imaging interpretation, lab interpretation, orders, and education, excluding time spent in the performance of separately billed services. History of Present Illness Chief Complaint: -chest pain Primary Care Provider: Terri Blount, 59 yo female with pmhx of severe CVA (residual right hemiparesis, expressive ap hasia, lives at [facility]), hypothyoridism, HTN, HLD, epilepsy who presents for chest pain. Last admission on 12/2024 for ileitis. In the ED, negative troponins, ECG unchanged from prior, admitted to medicine for chest pain rule out. Patient seen and examined at bedside. Mother present at bedside. Patient had chest pain whole day today, not prior. No radiation of pain. Pain is severe, reproducible with palpation. Worse with palpation, movement. No other associated symptoms. No SOB, nausea, vomiting, diarrhea, other symptoms. No drug use, no alcohol use, full code. Allergies Allergy/AdvReac Type Severity Reaction Status Date / Time lisinopril Allergy Unknown Verified 04/12/25 17:30 phenytoin AdvReac Severe ELEVATED Verified 04/12/25 17:30 LIVER COUNTS topiramate AdvReac Severe SYNCOPAL Verified 04/12/25 17:30 EPISODES, lowered heart rate Home Medications Medication Instructions Recorded Confirmed Type divalproex 500 mg tablet,delayed 500 mg PO .COMPLEX #90 tabs 12/14/24 04/12/25 Rx release levetiracetam 1,000 mg tablet 2,000 mg (2 x 1,000 mg) PO BID 12/14/24 04/12/25 Rx #120 tabs levothyroxine 50 mcg tablet 50 mcg PO QAM #30 tabs 12/14/24 04/12/25 Rx metformin 500 mg tablet,extended 500 mg PO QAM #30 tabs 12/14/24 04/12/25 Rx release 24 hr multivitamin 1 tab PO HS #30 tabs 12/14/24 04/12/25 Rx psyllium husk 3.4 gram oral powder 1 packet PO HS #30 ea 12/14/24 04/12/25 Rx packet (Metamucil Fiber (aspartame)) acetaminophen 325 mg tablet 650 mg PO Q6 PRN Pain 1-10 04/12/25 04/12/25 History (Tylenol) acetaminophen 325 mg tablet 650 mg PO Q6 PRN temp >100 04/12/25 04/12/25 History (Tylenol) calcium carbonate (Tums) 400 mg PO .EVERY 2 HOURS PRN 04/12/25 04/12/25 History Indigestion lorazepam 2 mg/mL injection 2 mg IM Q6 PRN Seizure Activity 04/12/25 04/12/25 History solution polyethylene glycol 3350 17 gram 17 g PO QAM 04/12/25 04/12/25 History oral powder packet (Miralax) spironolactone 25 mg tablet 50 mg PO QAM 04/12/25 04/12/25 History Past Med/Surg History Problem List (Updated 04/12/25 @ 20:41 by Fabricio Acevedo MD) Chest pain Hypertension History of CVA (cerebrovascular accident) Abnormal urinalysis Ileocolitis (Acute) Abdominal pain Seizure disorder Hypothyroidism Prediabetes Encounter for cosmetic procedure Epilepsy Diabetes Memory deficits Abnormal finding on GI tract imaging Dizziness Encounter for pre-operative examination UTI (urinary tract infection) (Acute) Ileitis, terminal (Acute) Hypothyroid Medical History H/O: stroke 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 Diverticulitis dx 6 mon ago History of cardiac murmur unsure Thyroid disease History of iron deficiency unsure History of recent hospitalization 3 weeks ago /[facility] - stomach infection - reason for upcoming colonoscopy. UTI dx during hospital stay/tx for. 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) Right sided weakness Surgical History History of D&C History of colonoscopy H/O craniotomy AVM Repair x multiple Family History Grandmother (Paternal) Family history of diabetes mellitus Social History Smoking Status: Unknown if ever smoked Tobacco Type: Cigarettes Second Hand Exposure: No; Do You Dip or Chew Tobacco: No; Hx Alcohol Use: No Hx Substance Use: No Preferred Language: Persian Communication Ability: Impaired Communication Ability Comment: patient points and gestures Greens Cutter Required: No Beliefs That Will Affect Care: Judaism Judaism Beliefs: Faith Current Living Situation: Spouse Current Living Situation Comment: home with spouse current occupational status: disabled Feels Safe at Home: Yes Sunscreen Use: Yes Assistive Devices: None Review of Systems Review of Systems: -negative unless listed above Physical Exam Physical Exam: Gen: A&O 3 NAD HEENT: NCAT, EOMI, not icteric. External ears normal. No rhinorrhea. Moist mucous membranes. Neck: Supple, full range of motion, no observable masses, No meningeal sign. Lungs: No Respiratory distress. CV: RRR, no edema. Severe tenderness to palpation on sternum and on costochondral attatchments Abdomen: Soft, nondistended, No rebound tenderness. MSK: No joint swelling, no redness. Skin: No rashes, petechiae, lesions. Normal color per patient. Neuro: Normal Gait, Grossly intact. Psych: Appropriate for situation. Results & Data Results & Data Vital Signs (Past 12 Hours) Vital Signs Temp Pulse Pulse Resp BP BP Pulse Ox 04/12/25 18:33 52 L 14 152/75 H 04/12/25 18:02 171/70 H 04/12/25 17:48 54 L 20 99 04/12/25 17:30 49 L 21 04/12/25 17:00 48 L 17 94 04/12/25 17:00 183/73 H 04/12/25 16:58 51 L 04/12/25 16:32 55 L 19 162/76 H 95 04/12/25 16:20 52 L 94 04/12/25 16:20 36.8 C 51 L 19 156/75 H 94 O2 Del Method O2 Flow Rate 04/12/25 18:33 Room Air 04/12/25 18:02 04/12/25 17:48 Nasal Cannula 2 04/12/25 17:30 04/12/25 17:00 Nasal Cannula 2 04/12/25 17:00 04/12/25 16:58 04/12/25 16:32 Nasal Cannula 2 04/12/25 16:20 Room Air 04/12/25 16:20 Room Air Laboratory Results -personally reviewed, negative troponins, ECG personally reviewed unchanged from prior, CT chest unremarkable Medications Administered Nitroglycerin (Nitroglycerin Sl 0.4 Mg/Tab Tab) 0.4 mg SL Q5M PRN PRN Reason: Chest Pain Stop: 05/12/25 16:16 Last Admin: 04/12/25 16:40 Dose: 0.4 mg Documented By: Admin: 04/12/25 16:29 Dose: 0.4 mg Documented By: ASW Code Status & VTE Plan Code Status -full code (3) Hypothyroidism Hypothyroidism type: unspecified Qualified Code(s): E03.9 - Hypothyroidism, unspecified
[2025-04-12] MEDS: LORazepam Inj 1 MG in SYRINGE 0.5 ML IV PRN (21:28)
[2025-04-12] MEDS: KETOROLAC TROMETHAMINE 15 MG/ML VIAL IV SCH (21:28)
[2025-04-12] MEDS: DICLOFENAC SOD 1% GEL 100 GM TUBE EXT SCH (21:28)
[2025-04-12] MEDS: LORazepam Inj 1 MG in SYRINGE 0.5 ML IV STA (23:08)
[2025-04-13] MEDS ORDERED: ONDANSETRON INJ 2 MG/ML 2 ML VIAL IV PRN (00:31)
[2025-04-13] MEDS ORDERED: POLYETHYLENE (MIRALAX) 17 GM PACK PO PRN (00:31)
[2025-04-13] MEDS ORDERED: ACETAMINOPHEN 325 MG TAB PO PRN (00:31)
[2025-04-13] MEDS ORDERED: CALCIUM CARBONATE 500 MG CHEWABLE TAB PO PRN (00:31)
[2025-04-13] MEDS: ACETAMINOPHEN 325 MG TAB PO PRN (01:01)
[2025-04-13] MEDS: levETIRAcetam 500 MG TAB PO SCH (01:03)
[2025-04-13] MEDS: DIVALPROEX DELAY RELEASE 500 MG TAB PO SCH ×2 (01:03→07:33)
[2025-04-13] MEDS: LEVOTHYROXINE SODIUM 50 MCG TABLET PO SCH (05:52)
[2025-04-13 06:45] LABS: Hematocrit (blood only) 38.4 % (37.0-47.0); Hemoglobin 13.4 g/dl (12.0-16.0); Mean Corpuscular Hemoglobin 29.8 pg (25.0-34.0); Mean Corpuscular Volume 85.3 fL (80.0-100.0); Platelet Count 161 K/uL (130-400); RDW Standard Deviation 40.6 fL (36.4-46.3); Red Blood Count 4.50 M/uL (4.20-5.40); White Blood Count 8.04 K/ul (4.8-10.8)
[2025-04-13 06:57] LABS: Alanine Aminotransferase 11.0 U/L (7-52); Albumin Globulin Ratio 1.7 (0.9-2); Albumin Level 4.0 gm/dl (3.4-5.0); Alkaline Phosphatase 41.0 U/L (34-104); Anion Gap 7.0 (3-11); Bilirubin,Total 0.4 mg/dl (0.2-1.0); Blood Urea Nitrogen 12.0 mg/dl (6-23); Calcium 9.2 mg/dl (8.6-10.3); Carbon Dioxide 31.0 mmol/L (21-32); Chloride 94.0 mmol/L (98-107); Creatinine Clr Calc Pharmacy 131.2 ml/min; Globulin 2.3 gm/dl (2.5-4.0); Glucose 94.0 mg/dl (70-99(Fasting)); Potassium 3.8 mmol/L (3.5-5.1); Sodium 132.0 mmol/L (136-145); Total Protein 6.3 gm/dl (6.0-8.3)
[2025-04-13] MEDS: SPIRONOLACTONE 25 MG TAB PO SCH (07:32)
[2025-04-13] MEDS: IBUPROFEN 200 MG/10 ML UDC PO SCH (10:25)
[2025-04-13] MEDS: LIDOCAINE 5% 1 PATCH TD SCH (10:26)
--- NOTE | 2025-04-13 11:49 | Cardiology Consultation ---
Date of Consultation April 13, 2025 Assessment & Plan (1) Atypical chest pain: Plan atypical chest pain CVA Seizure disorder Hypothyroidism bradycardia PVC Obesity PreDM -Patient with atypical, reproducible chest pain. MSK in nature. Improved with lidocaine -ACS ruled out. EKG without acute changes, troponin negative x2 -Telemetry reviewed. NSR. Thank you for the consult Case discussed with Dr Jonatan Blankenship spent a total of 44 minutes on the date of service in preparation, delivery, and documentation of the care provided to this patient, excluding any time spent in the performance of separately billed services. Marry Brock PA-C Department of Cardiology, [facility] This chart was completed in part utilizing Speech Voice Recognition Software. Grammatical errors, random word insertions, pronoun errors, and incomplete sentences are an occasional consequence of this system due to software limitations, ambient noise, and hardware issues. Any formal questions or concerns about the content, text, or information contained within the body of this dictation should be directly addressed to the provider for clarification. Supervising Physician Co-Signing Physician Notes Patient seen and examined. Past medical history, surgical history, social history and family history have been reviewed. The medical record and all the above studies have been reviewed. Case DW NOVA including management. Atypical chest pain - reproducible chest pain on palpation, MSK in nature, improved with lidocaine h/o CVA Seizure disorder Hypothyroidism Asymptomatic sinus bradycardia Obesity continue medical optimization risk factor modification f/u in cardiology clinic as OP Further cardiac w/u as OP as indicated w/u and management of non-cardiac cp as per hospitalist please recall if needed will sign off History of Present Illness Reason for Consultation: chest pain rule out Requesting Physician: Dr Lord Attending Physician: Harshil Lord MD History of Present Illness Thuy Lawton is a 59 year old female with PMHx CVA, seizure disorder, bradycardia, frequent PVC, obesity, PreDM who presented to [facility] ED with chest pain. Patient with right sided hemiparesis, expressive aphasia alf resident at [facility] s/p CVA. Patient reports sharp, stabbing central chest pains associated with shortness of breath. Provided with Maalox and NTG en route. Pain reproducible on palpation, tender. CRP/ESR ordered. CRP slightly elevated, 1.11. CTA chest with no evidence of PE. CXR with mild congestive changes similar to 2018 Patient evaluated with mother at bedside. Patient is limited historian d/t expressive aphasia. HPI provided by her mother. Pt does report pain has improved with lidocaine patch to central chest. Allergies Allergy/AdvReac Type Severity Reaction Status Date / Time lisinopril Allergy Unknown Verified 04/12/25 17:30 phenytoin AdvReac Severe ELEVATED Verified 04/12/25 17:30 LIVER COUNTS topiramate AdvReac Severe SYNCOPAL Verified 04/12/25 17:30 EPISODES, lowered heart rate Home Medications Medication Instructions Recorded Confirmed Type divalproex 500 mg tablet,delayed 500 mg PO .COMPLEX #90 tabs 12/14/24 04/12/25 Rx release levetiracetam 1,000 mg tablet 2,000 mg (2 x 1,000 mg) PO BID 12/14/24 04/12/25 Rx #120 tabs levothyroxine 50 mcg tablet 50 mcg PO QAM #30 tabs 12/14/24 04/12/25 Rx metformin 500 mg tablet,extended 500 mg PO QAM #30 tabs 12/14/24 04/12/25 Rx release 24 hr multivitamin 1 tab PO HS #30 tabs 12/14/24 04/12/25 Rx psyllium husk 3.4 gram oral powder 1 packet PO HS #30 ea 12/14/24 04/12/25 Rx packet (Metamucil Fiber (aspartame)) acetaminophen 325 mg tablet 650 mg PO Q6 PRN Pain 1-10 04/12/25 04/12/25 History (Tylenol) acetaminophen 325 mg tablet 650 mg PO Q6 PRN temp >100 04/12/25 04/12/25 History (Tylenol) calcium carbonate (Tums) 400 mg PO .EVERY 2 HOURS PRN 04/12/25 04/12/25 History Indigestion lorazepam 2 mg/mL injection 2 mg IM Q6 PRN Seizure Activity 04/12/25 04/12/25 History solution polyethylene glycol 3350 17 gram 17 g PO QAM 04/12/25 04/12/25 History oral powder packet (Miralax) spironolactone 25 mg tablet 50 mg PO QAM 04/12/25 04/12/25 History Patient History Medical History H/O: stroke 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 Diverticulitis dx 6 mon ago History of cardiac murmur unsure Thyroid disease History of iron deficiency unsure History of recent hospitalization 3 weeks ago /[facility] - stomach infection - reason for upcoming colonoscopy. UTI dx during hospital stay/tx for. 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) Right sided weakness Surgical History History of D&C History of colonoscopy H/O craniotomy AVM Repair x multiple Family History Grandmother (Paternal) Family history of diabetes mellitus Social History Smoking Status: Never smoker Tobacco Type: Cigarettes Second Hand Exposure: No; Do You Dip or Chew Tobacco: No; Tobacco Cessation Education Requested by Patient: No Hx Alcohol Use: No Hx Substance Use: No Preferred Language: Lithuanian Communication Ability: Effective Communication Ability Comment: Has aphasia and can be difficult to understand what she is trying to say Facility Service Associate Required: No Beliefs That Will Affect Care: None Current Living Situation: Family Current Living Situation Comment: Lives with and 3 kids current occupational status: disabled Other Information That Helps Us Care for You: No Feels Safe at Home: Yes Safety Concerns: Feels Safe At This Time Sunscreen Use: Yes Assistive Devices: Glasses Review of Systems Review of Systems: All systems reviewed & are unremarkable except as noted in HPI & below Physical Exam Constitutional: WD/WN, vitals as above Eyes: PERRL, conjunctivae normal, anicteric sclerae Respiratory: normal respiratory effort, lungs clear to auscultation Cardiovascular: RRR, no murmur, no edema Heart Sounds: normal S1 and normal S2 Vessels: no JVD Gastrointestinal (Abdomen): normal bowel sounds, soft, nontender, no hepatosplenomegaly Skin: no rashes, warm and dry Psychiatric: A+Ox3, euthymic affect Results & Data Vital Signs (Past 12 Hours) Vital Signs Temp Pulse Resp BP Pulse Ox O2 Del Method 04/13/25 08:00 Room Air 04/13/25 07:15 36.4 C L 50 L 18 171/75 H 94 Room Air 04/13/25 00:15 36.6 C 55 L 16 153/82 H 95 Room Air 04/13/25 00:00 36.6 C 55 L 16 153/82 H 95 Room Air Laboratory Results Cardiac Enzymes 04/12/25 04/12/25 04/13/25 Range/Units 16:04 18:40 05:43 AST 13 12 L (13-39) U/L Troponin I High Sens 5.6 6.4 (0-14) pg/ml Lipids 04/12/25 Range/Units 18:40 Triglycerides 97 (0-150) mg/dl Cholesterol 175 (0-200) mg/dl HDL Cholesterol 60 mg/dl Cholesterol/HDL Ratio 2.9 (0-5) CBC 04/12/25 04/13/25 Range/Units 16:04 05:43 WBC 9.20 8.04 (4.8-10.8) K/ul RBC 4.66 4.50 (4.20-5.40) M/uL Hgb 13.5 13.4 (12.0-16.0) g/dl Hct 40.0 38.4 (37.0-47.0) % Plt Count 166 161 (130-400) K/uL Neut # (Auto) 5.70 (1.40-6.50) K/uL Lymph # (Auto) 2.53 (1.20-3.40) K/uL Duval # (Auto) 0.73 H (0.11-0.59) K/uL Eos # (Auto) 0.10 (0.00-0.50) K/uL Baso # (Auto) 0.07 (0.00-0.20) K/uL Comprehensive Metabolic Panel 04/12/25 04/13/25 Range/Units 16:04 05:43 Sodium 130 L 132 L (136-145) mmol/L Potassium 3.9 3.8 (3.5-5.1) mmol/L Chloride 92 L 94 L (98-107) mmol/L Carbon Dioxide 32 31 (21-32) mmol/L BUN 12 12 (6-23) mg/dl Creatinine 0.67 0.59 L (0.6-1.2) mg/dl Glucose 119 H 94 (70-99(Fasting)) mg/dl Calcium 9.8 9.2 (8.6-10.3) mg/dl AST 13 12 L (13-39) U/L ALT 12 11 (7-52) U/L Alkaline Phosphatase 48 41 (34-104) U/L Total Protein 7.1 6.3 (6.0-8.3) gm/dl Albumin 4.2 4.0 (3.4-5.0) gm/dl Intake and Output 04/12/25 04/13/25 04/13/25 22:59 06:59 14:59 Output Total 350 / 350 Balance -350 / -350 Output: Urine 350 / 350 Other: # Unmeasured Voids 1 Weight 114 kg 110.9 kg Weight Measurement Method Chair Scale Standing Scale Diagnostic Findings EKG 04/12/2025 SB 56bpm ECHO 02/06/2019 Normal LVEF 60-64% LV wall motion is normal impaired LV relaxation is suggested No significant valvular disease PG Care Time/CCT Total # of Minutes Spent Total Time Spent with Patient: Total time spent is greater than 50% in coordination of care (as documented) at patient's floor/unit and/or counseling patient: Coding Level of Care Code 39358 IN/OBS CONSULT LVL 5,80M Diagnoses Atypical chest pain R07.89
--- NOTE | 2025-04-13 12:33 | Hospitalist Progress Note ---
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 #Atypical Chest Pain, likely MSK Patient presented with substernal chest pain; reproducible by palpation. EKGnormal sinus rhythm; no ST or T wave changes CTA chestno acute finding High since troponin negative Will start to schedule ibuprofen; Protonix Also started on lidocaine patch, Voltaren gel Will follow-up on echocardiogram and cardiology recommendation #Hx of Severe CVA #Epilepsy -redisual right sided hemiparesis, expressive aphasia Plan: -continue keppra, depakote -ativan prn for seizures -continue miralax for bowel regiment #Hypothyroidism -continue home levothyroxine Discussed with patient's mom at bedside DVT prophylaxis SCDs Full code Please note the above document was generated using voice recognition software. It may contain grammatical, syntax or spelling errors. Any formal questions or concerns about the content, text or information contained within the body of this dictation should be directly addressed to the provider for clarification Admission and Anticipated Discharge Date Admission Date: April 12, 2025 Subjective Patient seen and examined at bedside. She still continues to report chest pain; substernal reproducible Review of Systems Review of Systems: All systems reviewed & are unremarkable except as noted in Subjective Physical Exam Physical Exam: Constitutional: WD/WN, vitals as above, NAD, sitting up in bed, pleasant, conversing easily Respiratory: normal respiratory effort, lungs clear to auscultation, no wheeze, rales, rhonchi. Normal insp/exp effort, no accessory muscle use Cardiovascular: RRR, no murmur, no edema Vessels: no JVD or carotid bruit Chest:tendeness in palpation of ant chest Abdomen: normal bowel sounds, soft, nontender, no hepatosplenomegaly Musculoskeletal: no cyanosis or clubbing, extremities motor strength 5/5 Skin: no rashes, warm and dry normal turgor Neurologic: PERRL, EOMI, accommodation nl, no face palsy, no dysarthria CN's II- XI intact bilaterally and moves all extremities Psychiatric: A+Ox3, euthymic affect Results & Data Results & Data Vital Signs (Past 12 Hours) Vital Signs Temp Pulse Resp BP Pulse Ox O2 Del Method 04/13/25 09:15 149/76 H 04/13/25 08:00 Room Air 04/13/25 07:15 36.4 C L 50 L 18 171/75 H 94 Room Air (3) Hypothyroidism Hypothyroidism type: unspecified Qualified Code(s): E03.9 - Hypothyroidism, unspecified
[2025-04-13] MEDS: LORazepam 1 MG TAB PO PRN (18:24)
--- NOTE | 2025-04-13 19:38 | Electrocardiogram Report ---
Test Reason : Blood Pressure : */* mmHG Vent. Rate : 56 BPM Atrial Rate : 56 BPM P-R Int : 158 ms QRS Dur : 78 ms QT Int : 446 ms P-R-T Axes : -18 -11 165 degrees QTcB Int : 430 ms Sinus bradycardia Inferior infarct , age undetermined Abnormal ECG When compared with ECG of 25-Mar-2022 08:30, Inferior infarct is now Present Nonspecific T wave abnormality now evident in Inferior leads Confirmed by Amando Silva ([id number]) on 04/13/2025 7:38:13 PM Referred By: REFERRED SELF Confirmed By: Amando Silva
[2025-04-13] MEDS: REMOVE LIDODERM PATCH SCH (21:49)
[2025-04-13 23:24] VITALS: RESP 18
[2025-04-14 07:44] LABS: Hematocrit (blood only) 37.4 % (37.0-47.0); Hemoglobin 13.2 g/dl (12.0-16.0); Mean Corpuscular Hemoglobin 29.9 pg (25.0-34.0); Mean Corpuscular Volume 84.6 fL (80.0-100.0); Platelet Count 155 K/uL (130-400); RDW Standard Deviation 39.9 fL (36.4-46.3); Red Blood Count 4.42 M/uL (4.20-5.40); White Blood Count 6.92 K/ul (4.8-10.8)
[2025-04-14 08:02] VITALS: BP 160/76; PULSE 52; TEMP 97.9; O2SAT 96
[2025-04-14 08:02] LABS: Alanine Aminotransferase 9.0 U/L (7-52); Albumin Globulin Ratio 1.8 (0.9-2); Albumin Level 3.9 gm/dl (3.4-5.0); Alkaline Phosphatase 39.0 U/L (34-104); Anion Gap 7.0 (3-11); Bilirubin,Total 0.4 mg/dl (0.2-1.0); Blood Urea Nitrogen 12.0 mg/dl (6-23); Calcium 8.8 mg/dl (8.6-10.3); Carbon Dioxide 31.0 mmol/L (21-32); Chloride 94.0 mmol/L (98-107); Creatinine Clr Calc Pharmacy 126.9 ml/min; Globulin 2.2 gm/dl (2.5-4.0); Glucose 98.0 mg/dl (70-99(Fasting)); Potassium 3.8 mmol/L (3.5-5.1); Sodium 132.0 mmol/L (136-145); Total Protein 6.1 gm/dl (6.0-8.3)
--- NOTE | 2025-04-14 10:51 | Discharge Summary ---
Date of Service April 14, 2025 Admission HPI Per Admitting Provider 59 yo female with pmhx of severe CVA (residual right hemiparesis, expressive aphasia, lives at [facility]), hypothyoridism, HTN, HLD, epilepsy who presents for chest pain. Last admission on 12/2024 for ileitis. In the ED, negative troponins, ECG unchanged from prior, admitted to medicine for chest pain rule out. Patient seen and examined at bedside. Mother present at bedside. Patient had chest pain whole day today, not prior. No radiation of pain. Pain is severe, reproducible with palpation. Worse with palpation, movement. No other associated symptoms. No SOB, nausea, vomiting, diarrhea, other symptoms. No drug use, no alcohol use, full code. Admission Exam Per Admitting Provider Gen: A&O 3 NAD HEENT: NCAT, EOMI, not icteric. External ears normal. No rhinorrhea. Moist mucous membranes. Neck: Supple, full range of motion, no observable masses, No meningeal sign. Lungs: No Respiratory distress. CV: RRR, no edema. Severe tenderness to palpation on sternum and on costochondral attatchments Abdomen: Soft, nondistended, No rebound tenderness. MSK: No joint swelling, no redness. Skin: No rashes, petechiae, lesions. Normal color per patient. Neuro: Normal Gait, Grossly intact. Psych: Appropriate for situation. Principal Diagnosis Atypical Chest Pain, likely MSK Discharge Exam Constitutional: WD/WN, vitals as above, NAD, sitting up in bed, pleasant, conversing easily Respiratory: normal respiratory effort, lungs clear to auscultation, no wheeze, rales, rhonchi. Normal insp/exp effort, no accessory muscle use Cardiovascular: RRR, no murmur, no edema Vessels: no JVD or carotid bruit Chest:tendeness in palpation of ant chest Abdomen: normal bowel sounds, soft, nontender, no hepatosplenomegaly Musculoskeletal: no cyanosis or clubbing, extremities motor strength 5/5 Skin: no rashes, warm and dry normal turgor Neurologic: PERRL, EOMI, accommodation nl, no face palsy, no dysarthria CN's II- XI intact bilaterally and moves all extremities Psychiatric: A+Ox3, euthymic affect Discharge Data Allergies Allergy/AdvReac Type Severity Reaction Status Date / Time lisinopril Allergy Unknown Verified 04/12/25 17:30 phenytoin AdvReac Severe ELEVATED Verified 04/12/25 17:30 LIVER COUNTS topiramate AdvReac Severe SYNCOPAL Verified 04/12/25 17:30 EPISODES, lowered heart rate Consultations 04/12/25 18:47 ED Decision to Admit Stat 04/13/25 00:31 Consult Cardiology Routine Ordered Studies 04/12/25 16:17 CT angio chest PE protocol Stat Hospital Course (1) Chest pain: (2) Seizure disorder: (3) Hypothyroidism: (4) Ileitis, terminal: (5) H/O: stroke: (6) 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 #Atypical Chest Pain, possible costochondritis Patient presented with substernal chest pain; reproducible by palpation. EKGnormal sinus rhythm; no ST or T wave changes CTA chestno acute finding High since troponin negative During the hospitalization, patient was admitted to medical floor; was started on a lidocaine patch [id number] ibuprofen with improvement with the chest pain. Cardiology was consulted for comanagement; they did not recommend any further workup. Patient was discharged on scheduled ibuprofen, Tylenol and lidocaine patch; patient to follow-up with her PCP. No other medication changes were done Please note the above document was generated using voice recognition software. It may contain grammatical, syntax or spelling errors. Any formal questions or concerns about the content, text or information contained within the body of this dictation should be directly addressed to the provider for clarification Total Time Total Time Spent Total Time Spent (In Minutes): 45 Total Time Includes: Examination of the Patient, Discharge Planning, Medication Reconciliation, Communication With Other Providers and Other Discharge Plan Discharge Items Patient Disposition: Transfer Detention Fac Reason For Visit: CHEST PAIN RULE OUT Discharge Diagnosis: #Atypical Chest Pain, likely MSK Condition on Discharge: Fair Activity: Resume your previous activity Non-emergency contact: Primary Care Provider Call non-emergency contact if: you have any medication questions and your symptoms worsen Follow-up/Referrals: Terri Blount DO [Primary Care Provider] - Diet: Regular Addtl Attending Provider Instructions: You were admitted to the hospital due to chest pain. The likely cause for the chest pain is inflammation of the joints of the chest and muscle. You are prescribed following medication for it; Take ibuprofen 600 mg 3 times a day for 7 days Take Tylenol 650 mg 3 times a day for 7 days. You can alternate Tylenol and ibuprofen for better pain control. You are also prescribed lidocaine patch to be placed on anterior chest for the pain. You are prescribed Protonix 40 mg once a day for 14 days. Please follow-up with your primary care doctor as scheduled. Pending Studies at Discharge: No Stand-Alone Forms: My [facility] [place], Smoking Cessation Skilled Items Patient informed of condition?: Yes DNR: No Discharge Level of Care: Skilled Communicable Disease: No Discharge Prognosis: Stable Lines: None Urinary Catheter: No Medications and DC Order Prescriptions: New pantoprazole 40 mg Tablet,Delayed Release (Dr/Ec) 40 mg PO QAM Qty: 14 0RF lidocaine 4 % adhesive patch,medicated 1 patch topical DAILY 10 Days Qty: 10 0RF ibuprofen 600 mg tablet 600 mg PO Q8H 7 Days Qty: 21 0RF acetaminophen [Tylenol] 325 mg tablet 650 mg PO Q8H 7 Days Qty: 42 0RF Continued multivitamin tablet 1 tab PO HS Qty: 30 0RF divalproex 500 mg tablet,delayed release (DR/EC) 500 mg PO .COMPLEX Qty: 90 3RF Rx Instructions: TAKES 0800 & 2000 EXACTLY!!! TAKE 500MG BY MOUTH EVERY MORNING AND 1000MG EVERY EVENING levothyroxine 50 mcg tablet 50 mcg PO QAM Qty: 30 0RF metformin 500 mg tablet extended release 24 hr 500 mg PO QAM Qty: 30 0RF levetiracetam 1,000 mg tablet 2,000 mg PO BID Qty: 120 3RF Rx Instructions: TAKES 0800 & 2000 EXACTLY!!! Metamucil Fiber (aspartame) 3.4 gram Powder In Packet 1 packet PO HS Qty: 30 0RF polyethylene glycol 3350 [Miralax] 17 gram Powder In Packet 17 g PO QAM acetaminophen [Tylenol] 325 mg Tablet 650 mg PO Q6 MDD 3G PRN (Reason: Pain 1-10 ) acetaminophen [Tylenol] 325 mg Tablet 650 mg PO Q6 MDD 3G PRN (Reason: temp >100) spironolactone 25 mg tablet 50 mg PO QAM lorazepam 2 mg/mL Solution 2 mg IM Q6 PRN (Reason: Seizure Activity) Rx Instructions: end date 04/20/25 calcium carbonate [Tums] 200 mg calcium (500 mg) Tablet,Chewable 400 mg PO .EVERY 2 HOURS PRN (Reason: Indigestion) Discharge Orders: Discharge Order (Routine); Ordered 04/14/25 Ordered By: Harshil Galvez/Other Patient Handouts: Diabetes: Meal Planning, Type 2 Diabetes Admission Data Admit Date/Time: 04/12/25 18:50 Attending Provider: Harshil Lord Admit Provider: Fabricio Acevedo Primary Care Provider: Terri Blount Other Providers: Fabricio Acevedo; [place],[facility] Other Interventions: Discharge Summary Assessment (RN) Last Done: 04/14/25 10:27
== END 2025-04-14 12:00 ==
LOC: ED 16:10 → 3N 18:50 → SUATTDRO 18:50 → INTOOBSV 18:50 → 3N 23:20